=== PATIENT | male | born 1995 | race Caucasian/White ===

== ENCOUNTER 2018-08-17 13:32 | Outpatient (RCR) | payer OTHER | END 2018-11-15 | disposition home or self-care (01) | LOC: WSOH → EDSTATUS 14:35 | DX: S60.512A Abrasion of left hand, initial encounter (principal); Z77.21 Contact with and (suspected) exposure to potentially hazardous body fluids; W27.8XXA Contact with other nonpowered hand tool, initial encounter; Y92.234 Operating room of hospital as the place of occurrence of the external cause; Y99.0 Civilian activity done for income or pay; Z87.891 Personal history of nicotine dependence ==